=== PATIENT | male | born 1995 ===

== ENCOUNTER → 2023-09-16 | Outpatient (REF) | payer OTHER ==
[2023-09-16 12:52] LABS: SEMEN APPEARANCE OPAQUE (OPAQUE); SEMEN VISCOSITY LIQUID (LIQUID); SPERM CONCENTRATION 92.4 M/ml (>=15.0); WBC CONCENTRATION <=1 M/ml (<=1 M/ml)
== END ==
LOC: M LAB REF 12:41
PROVIDERS: ATTEND Physician Assistant
DX: N46.9 Male infertility, unspecified (principal)